=== PATIENT | female | born 1940 | race Caucasian/White ===

== ENCOUNTER 2016-11-01 12:38 | Inpatient (IN) | payer MEDICARE, OTHER ==
--- NOTE | ~2016-11-01 | HP ---
History And Physical [facility] [address] [place]. [address] NAME: JENNIFER HONG : 42 STATUS : ADM IN [facility]#: [id number] AGE: 76 ADM/REG DATE : 11/01/16 MR#: [id number] REPORT SERV DATE: 11/01/16 DICTATED BY: RONN QUEVEDO DATE: 11/01/16 REPORT STATUS : Draft TRANSCRIBED BY: MODYaya DATE: 11/01/16 DATE OF ADMISSION: 11/01/[address] Toni Jackson is in [place]. The patient is a very pleasant 76-year-old female, who was traveling from [place] to [place] and when she was about to go back, she basically noticed last night right upper extremity swelling, redness, fever and chills, and headache. She took ibuprofen for chills and it got better but the right arm became extremely swollen and red and warm to touch and she developed right upper extremity cellulitis. The patient denies any chest pain. No shortness of breath. No abdominal pain. No diarrhea or constipation. No headache now. She is just complaining of right arm swelling and redness and she said that she had multiple episodes of right upper extremity cellulitis before and it is related to her history of radical right-sided mastectomy in . All 14-point review of systems done and negative except what is stated in the history of present illness. PAST MEDICAL HISTORY: Known for history of right sided radical mastectomy for right- sided breast cancer, followed by chemotherapy and radiation. History of chronic lymphedema on the right upper extremity. History of diabetes on metformin and Byetta. History of hypertension. History of hypothyroidism. PAST SURGICAL HISTORY: Includes right radical mastectomy, hysterectomy, TRAM flap of the breast. Two total knee replacements. Two back surgeries. Chronic back pain and chronic knee pain. ALLERGIES: SHE IS ALLERGIC TO MORPHINE, WHICH IS ACTUALLY NOT ALLERGIES, ITS REACTION CAUSES VOMITING. SHE IS NOT ALLERGIC TO ANY ANTIBIOTICS. SOCIAL HISTORY: No alcohol. No smoking. No recreational drug use. She is . She lives in [place]. She is a retired nurse. She has 3 sons and she has 12 grandchildren. FAMILY HISTORY: Mother of lymphoma and sarcoma father of massive stroke. HOME MEDICATIONS: Include 1. Ibuprofen 600 p.o. daily p.r.n. for pain. 2. Krill oil 1 capsule daily. 3. Levothyroxine 125 mcg a day. 4. Losartan 100 mg daily. 5. Metformin 1000 mg twice a day. 6. Multivitamin daily. 7. Florastor 250 mg p.o. daily. 8. Belsomra 20 mg daily for insomnia. 9. Fenofibrate 54 mg daily. 10.Aspirin 81 mg daily. History And Physical [address] [address] NAME: JENNIFER HONG : 42 STATUS : ADM IN PAT#: [id number] AGE: 76 ADM/REG DATE : 11/01/16 MR#: [id number] REPORT SERV DATE: 11/01/16 DICTATED BY: RONN QUEVEDO DATE: 11/01/16 REPORT STATUS : Draft TRANSCRIBED BY: MILLIE DATE: 11/01/16 11.Lipitor 40 mg daily. 12.Calcium carbonate 600 p.o. b.i.d. 13.Vitamin D 1000 units daily. 14.Coenzyme Q 100 mg daily. 15.Byetta 10 mg subcu b.i.d. 16.Neurontin 600 p.o. b.i.d. 17.Hydrocodone with acetaminophen 1 tablet p.o. daily p.r.n. PHYSICAL EXAMINATION: GENERAL: Well-nourished well-developed female, not in acute distress. Resting quietly. VITAL SIGNS: Blood pressure 110/50, temperature 98.5, heart rate 100, respirations 16, and oxygen saturation 95 on room air. HEENT: Head atraumatic, normocephalic. Conjunctivae clear. Pupils are equal and reactive to light and accommodation. Extraocular muscles are intact. NECK: Supple. Trachea is midline. LYMPH: No supraclavicular or cervical lymphadenopathy. LUNGS: Clear to auscultation bilaterally. Normal respiratory effort. CARDIOVASCULAR SYSTEM: Regular rate and rhythm. Point of maximal impulse not displaced. ABDOMEN: Soft, nontender, nondistended. Positive normoactive bowel sounds. EXTREMITIES: Right arm is extremely swollen and red from shoulder to the forearm. There is normal palpable pulse. It is warm to touch. The left arm looks normal. No clubbing. No cyanosis. No edema on the lower extremities.PSYCHIATRIC: Normal mood and affect. SKIN: Normal color and turgor, otherwise. NEUROLOGICAL: Awake, alert, oriented in time, place, and person. Muscle strength is 5/5 bilaterally on upper and lower extremities. LABORATORY RESULTS: Sodium 140, potassium 3.9, chloride 106, carbon dioxide 26, BUN 30, and creatinine is 1. Blood sugar 167. ALT 25, AST 16. White count 9, hemoglobin 12.7, and hematocrit 37.9, and platelet count 206. ASSESSMENT AND PLAN: This is a very pleasant 76-year-old female with a past medical history of hypertension, history of breast cancer status post mastectomy many years ago. History of recurrent right upper extremity cellulitis. History of diabetes, and other chronic medical problems presented with. 1. Severe right upper extremity cellulitis which is recurrent in nature, secondary to surgery on her breast long time ago and impaired lymphatic circulation as well as chronic lymphedema. The patient was recommended to keep her upper extremity elevated and blood cultures were drawn. Procalcitonin drawn. She was started on antibiotics vancomycin and cefepime. 2. Diabetes mellitus. She is on metformin on Byherreid. We will hold these medications while inpatient. We will put her on insulin/NovoLog sliding scale before meals and we will also check her hemoglobin A1c. 3. Hypertension. We will continue her home blood pressure medications. 4. Mild prerenal azotemia. We will start the patient on IV fluid hydration. We will hold for today nonsteroidal antiinflammatories. We will recheck her creatinine tomorrow. 5. Hypothyroidism. We will check her TSH. My partner will see this patient starting tomorrow morning. The patient was will be placed History And Physical [address] [address] NAME: JENNIFER HONG Hedy : 42 STATUS : ADM IN PAT#: [id number] AGE: 76 ADM/REG DATE : 11/01/16 MR#: [id number] REPORT SERV DATE: 11/01/16 DICTATED BY: RONN QUEVEDO DATE: 11/01/16 REPORT STATUS : Draft TRANSCRIBED BY: MODYaya DATE: 11/01/16 on DVT prophylaxis. Once again, the patient was told to keep her right upper extremity elevated. Also we will check right upper extremity duplex venous ultrasound to rule out DVT. MG/HEBERTL Ronn Quevedo M.D. / [id number] CC: Jaron Hager [facility]
--- NOTE | ~2016-11-01 | DS ---
Discharge Summary [facility] [id number] [place]. [address] NAME: JENNIFER HONG : 42 STATUS : DIS IN PAT#: [id number] AGE: 76 ADM/REG DATE : 11/01/16 MR#: [id number] REPORT SERV DATE: 11/04/16 DICTATED BY: BRITTNEE HOLLOWAY DATE: 11/03/16 REPORT STATUS : Draft TRANSCRIBED BY: MODL DATE: 11/03/16 ADMISSION DATE: 11/01/2016 DISCHARGE DATE: 11/03/2016 PRINCIPAL DIAGNOSES: Right arm cellulitis in the setting of right arm lymphedema and history of breast cancer. SECONDARY DIAGNOSES: Hypertension, history of diabetes. HISTORY OF PRESENT ILLNESS: Please see Dr. Interiano's dictation on 11/01/2016. HOSPITAL COURSE: Admitted with right upper extremity cellulitis in the setting of a right arm lymphedema, she has had this episode before, received parental antibiotics, actually was able to switch to p.o. by 11/03/2016. She is from [place] and she wished to return to [place], it was felt satisfactory to do so as her erythema, heat, and tenderness had resolved. DICTATED BY: Jaron Zafar/MILLIE Brittnee Holloway M.D. / [id number] CC: Johnny Costa M.D.
[2016-11-01 13:10] LABS: BASOPHILS 0.1 %; BASOPHILS ABSOLUTE 0.01 10/3/uL (0.0-0.16); EOSINOPHILS 0.1 %; EOSINOPHILS ABSOLUTE 0.01 10/3/uL (0.0-0.53); HEMATOCRIT 37.9 % (36.0-48.0); HEMOGLOBIN 12.7 g/dL (12.0-16.0); IMMATURE GRANULOCYTES ABSOLUTE 0.09 10/3/uL (0.0-0.11); LYMPHOCYTES 8.2 %; LYMPHOCYTES ABSOLUTE 0.74 10/3/uL (0.67-4.30); MEAN CORPUS HGB CONC 33.5 g/dL (32.0-36.0); MEAN CORPUSCULAR HEMOGLOB 29.8 pg (26.0-34.0); MEAN PLATELET VOLUME 10.4 fL (9.2-13.0); MONOCYTES 2.2 %; NEUTROPHILS 88.4 %; NEUTROPHILS ABSOLUTE 7.94 10/3/uL (2.02-8.40); PLATELET COUNT 206 10/3/uL (150-400); RBC DISTRIBUTION WIDTH 14.8 % (12.0-16.0); RED CELL COUNT 4.26 10/6/uL (4.0-5.6)
[2016-11-01 13:11] LABS: ER CBC TAT 0 Hrs 05 Mins; MANUAL DIFF NO %
[2016-11-01 13:24] LABS: A/G RATIO 1.1 (0.7-1.9); ALBUMIN 3.9 G/DL (3.5-5.0); ALKALINE PHOSPHATASE 37 U/L (45-117); BUN (BLOOD UREA NITROGEN) 30 MG/DL (6-23); CHLORIDE, SERUM 106 MMOL/L (96-112); CO2 (CARBON DIOXIDE) 26 MMOL/L (24-34); GFR AFRICAN AMERICAN 64 ML/MIN (>=60); GFR NON AFRICAN AMERICAN 55 ML/MIN (>=60); GLOBULIN 3.5 G/DL (2.5-4.1); GLUCOSE, SERUM 167 MG/DL (60-99); POTASSIUM, SERUM 3.9 MMOL/L (3.5-5.3); SGOT(AST) 16 U/L (5-40); SGPT(ALT) 25 U/L (5-65); SODIUM, SERUM 140 MMOL/L (135-148); TOTAL BILIRUBIN 0.6 MG/DL (0-1.2); TOTAL PROTEIN 7.4 G/DL (6.0-8.5)
[2016-11-01] MEDS ORDERED: NEUR600 PO (16:15)
[2016-11-01] MEDS ORDERED: GLUCOPHAGE1000 MG PO (16:15)
[2016-11-01] MEDS ORDERED: BYETTA10 SC (16:15)
[2016-11-01] MEDS ORDERED: MULTIVITAMI1 (16:16)
[2016-11-01] MEDS ORDERED: FLORASTOR250 MG PO (16:16)
[2016-11-01] MEDS ORDERED: CO Q-10100 MG PO (16:17)
[2016-11-01] MEDS ORDERED: ASAB PO (16:18)
[2016-11-01] MEDS ORDERED: IBU600 PO (16:19)
[2016-11-01] MEDS ORDERED: CALTRAT600 PO (16:19)
[2016-11-01] MEDS ORDERED: VITAMIN D1000 UNI1 PO (16:20)
[2016-11-01] MEDS ORDERED: KRILLOIL PO (16:22)
[2016-11-01] MEDS ORDERED: FENOFIBRATE PO (16:23)
[2016-11-01] MEDS ORDERED: LIPITOR40 PO (16:24)
[2016-11-01] MEDS ORDERED: SYN125 PO (16:25)
[2016-11-01] MEDS ORDERED: NORCO1 TA1 PO (16:26)
[2016-11-01] MEDS ORDERED: COZAAR100 MG PO (16:27)
[2016-11-01] MEDS ORDERED: BELSOMRA20 MG PO (16:28)
[2016-11-01 21:17] LABS: ULTRASENSITIVE TSH 0.247 MCIU/ML (0.358-3.740)
[2016-11-01 21:46] LABS: PROCALCITONIN 0.54 ng/mL (<0.5)
[2016-11-02 06:17] LABS: CALCIUM, SERUM 10.3 MG/DL (8.5-10.4); CHLORIDE, SERUM 105 MMOL/L (96-112); CO2 (CARBON DIOXIDE) 27 MMOL/L (24-34); CREATININE 0.58 MG/DL (0.55-1.02); GFR AFRICAN AMERICAN 105 ML/MIN (>=60); GFR NON AFRICAN AMERICAN 90 ML/MIN (>=60); POTASSIUM, SERUM 3.2 MMOL/L (3.5-5.3); SODIUM, SERUM 140 MMOL/L (135-148)
[2016-11-02 06:18] LABS: BUN (BLOOD UREA NITROGEN) 20 MG/DL (6-23)
[2016-11-02 06:19] LABS: GLUCOSE, SERUM 132 MG/DL (60-99)
[2016-11-02 06:30] LABS: BASOPHILS 0.1 %; BASOPHILS ABSOLUTE 0.01 10/3/uL (0.0-0.16); EOSINOPHILS 0.6 %; EOSINOPHILS ABSOLUTE 0.04 10/3/uL (0.0-0.53); HEMATOCRIT 33.6 % (36.0-48.0); HEMOGLOBIN 11.2 g/dL (12.0-16.0); IMMATURE GRANULOCYTES 0.1 %; IMMATURE GRANULOCYTES ABSOLUTE 0.01 10/3/uL (0.0-0.11); LYMPHOCYTES 16.4 %; LYMPHOCYTES ABSOLUTE 1.19 10/3/uL (0.67-4.30); MANUAL DIFF NO %; MEAN CORPUS HGB CONC 33.3 g/dL (32.0-36.0); MEAN CORPUSCULAR HEMOGLOB 29.6 pg (26.0-34.0); MEAN CORPUSCULAR VOLUME 88.7 fL (80-100); MEAN PLATELET VOLUME 10.8 fL (9.2-13.0); MONOCYTES 6.3 %; MONOCYTES ABSOLUTE 0.46 10/3/uL (0.21-1.20); NEUTROPHILS 76.5 %; NEUTROPHILS ABSOLUTE 5.54 10/3/uL (2.02-8.40); PLATELET COUNT 189 10/3/uL (150-400); RBC DISTRIBUTION WIDTH 14.9 % (12.0-16.0); RED CELL COUNT 3.79 10/6/uL (4.0-5.6); WHITE BLOOD CELLS 7.3 10/3/uL (4.5-10.5)
[2016-11-03 03:59] LABS: BASOPHILS 0 %; EOSINOPHILS 1.9 %; HEMATOCRIT 33.7 % (36.0-48.0); HEMOGLOBIN 11.1 g/dL (12.0-16.0); IMMATURE GRANULOCYTES 0.4 %; IMMATURE GRANULOCYTES ABSOLUTE 0.02 10/3/uL (0.0-0.11); LYMPHOCYTES 27.9 %; LYMPHOCYTES ABSOLUTE 1.45 10/3/uL (0.67-4.30); MANUAL DIFF NO %; MEAN CORPUS HGB CONC 32.9 g/dL (32.0-36.0); MEAN CORPUSCULAR HEMOGLOB 29.5 pg (26.0-34.0); MEAN CORPUSCULAR VOLUME 89.6 fL (80-100); MEAN PLATELET VOLUME 10.4 fL (9.2-13.0); MONOCYTES 7.5 %; MONOCYTES ABSOLUTE 0.39 10/3/uL (0.21-1.20); NEUTROPHILS 62.3 %; NEUTROPHILS ABSOLUTE 3.23 10/3/uL (2.02-8.40); PLATELET COUNT 157 10/3/uL (150-400); RBC DISTRIBUTION WIDTH 14.8 % (12.0-16.0); RED CELL COUNT 3.76 10/6/uL (4.0-5.6); WHITE BLOOD CELLS 5.2 10/3/uL (4.5-10.5)
[2016-11-03 04:12] LABS: BUN (BLOOD UREA NITROGEN) 20 MG/DL (6-23); CALCIUM, SERUM 9.8 MG/DL (8.5-10.4); CHLORIDE, SERUM 108 MMOL/L (96-112); CO2 (CARBON DIOXIDE) 27 MMOL/L (24-34); GFR AFRICAN AMERICAN 98 ML/MIN (>=60); GFR NON AFRICAN AMERICAN 85 ML/MIN (>=60); POTASSIUM, SERUM 3.7 MMOL/L (3.5-5.3); SODIUM, SERUM 140 MMOL/L (135-148)
[2016-11-03 04:14] LABS: GLUCOSE, SERUM 177 MG/DL (60-99)
[2016-11-03] MEDS ORDERED: K500 PO (10:27)
[2016-11-03] MEDS ORDERED: CLINDAMYCIN PO (10:29)
[2016-11-03] MEDS ORDERED: FISH-EPA1000 MG PO (16:05)
== END 2016-11-03 16:47 | disposition home or self-care (01) | DRG 603 ==
LOC: ER 12:38 → 4SO 17:02
PROVIDERS: Emergency Medicine; Hospitalist
DX: L03.113 Cellulitis of right upper limb (principal); E11.9 Type 2 diabetes mellitus without complications; I10 Essential (primary) hypertension; I97.2 Postmastectomy lymphedema syndrome; Y83.6 Removal of other organ (partial) (total) as the cause of abnormal reaction of the patient, or of later complication, without mention of misadventure at the time of the procedure; Z85.3 Personal history of malignant neoplasm of breast; Z92.3 Personal history of irradiation; Z92.21 Personal history of antineoplastic chemotherapy; Z79.84 Long term (current) use of oral hypoglycemic drugs; E03.9 Hypothyroidism, unspecified; Z96.653 Presence of artificial knee joint, bilateral; G89.29 Other chronic pain; M54.9 Dorsalgia, unspecified; Z79.82 Long term (current) use of aspirin; Z79.891 Long term (current) use of opiate analgesic
CPT/HCPCS: 80048; 80053; 82962; 83036; 83735; 84132; 84145; 84443; 85025; 87040; 99284; A9270-GY; J0690; J0692; J3370; J3475